=== PATIENT | male | born 1980 | race Caucasian/White ===

== ENCOUNTER 2017-03-13 08:57 | Emergency (ER) | payer SELFPAY ==
[~2017-03-13 08:57] MED LIST: PERC10TA27 PO
[2017-03-13 08:59] VITALS: BP 110/67; PULSE 77; RESP 16; TEMP 98.2; O2SAT 97
[2017-03-13] MEDS ORDERED: SODIUM CHLOR 0.9% 1000 ML INJ 1,000 ML IV SCH ×2 (09:08→10:45)
[2017-03-13 09:15] VITALS: O2SAT 97
[2017-03-13] MEDS ORDERED: MORPHINE SULFATE 4 MG/ML INJ IV PUSH ONE (09:15)
[2017-03-13] MEDS ORDERED: ONDANSETRON HCL 4 MG/2 ML VIAL IVP ONE (09:15)
[2017-03-13] MEDS ORDERED: SODIUM CHLORIDE 0.9% FLUSH 10 ML FLUSH IV FLUSH PRN (09:15)
[2017-03-13] MEDS ORDERED: KETOROLAC TROMETHAMINE 30 MG/ML (IVP) VIAL IVP ONE (09:15)
[2017-03-13 09:29] LABS: AUTOMATED NEUTROPHIL # 6.3 TH/MM3 (1.8-7.7); BASOPHIL # 0.2 TH/MM3 (0-0.2); BASOPHIL % 1.3 % (0.0-2.0); EOSINOPHIL # 0.2 TH/MM3 (0-0.4); EOSINOPHIL % 2.1 % (0.0-4.0); HEMATOCRIT 44.4 % (39.0-51.0); HEMO FLAGS DIFF FINAL; LYMPH % 34.8 % (9.0-44.0); LYMPHOCYTE # 4.1 TH/MM3 (1.0-4.8); MEAN CELL VOLUME 92.1 FL (80.0-100.0); MEAN CORPUSCULAR HEMOGLOBIN 31.2 PG (27.0-34.0); MEAN CORPUSCULAR HGB CONC 33.9 % (32.0-36.0); MONO % 8.8 % (0.0-8.0); PLATELET COUNT 233 TH/MM3 (150-450); RED BLOOD COUNT 4.82 MIL/MM3 (4.50-5.90); RED CELL DISTRIBUTION WIDTH 12.6 % (11.6-17.2); WHITE BLOOD COUNT 11.8 TH/MM3 (4.0-11.0)
--- NOTE | 2017-03-13 09:45 | PD ---
HPI Chief Complaint: Flank/Kidney Pain Time Seen by Provider: 09:06 Travel History International Travel<30 days: No Contact w/Intl Traveler<30days: No Traveled to known affect area: No History of Present Illness HPI So 36-year-old man who presents to the emergency department complaining of left flank pain. Symptoms started about an hour ago. Symptoms are severe. Since getting here he started having nausea and vomiting as well. He's had sweats but no definite fevers. His a history kidney stones and states he gets about one year or so. Symptoms are similar to multiple previous kidney stones. She' s not had needed a procedure intervention for us kidney stones. History Past Medical History Narrative Medical Kidney stones Influenza Vaccination: No Past Surgical History Surgical History: No Previous Surgery Social History Alcohol Use: Yes (12 PACK DAILY) Tobacco Use: Yes (1 PPD) Allergies-Medications (Allergen,Severity, Reaction): Coded Allergies: No Known Allergies (Verified , 03/13/17) Reported Meds & Prescriptions Reported Meds & Active Scripts Active No Active Prescriptions or Reported Medications Review of Systems Except as stated in HPI: all other systems reviewed are Neg Physical Exam Narrative GENERAL: Well-appearing 36-year-old man, obviously uncomfortable, retching. SKIN: A little bit clammy. NECK: Trachea midline. No JVD. CARDIOVASCULAR: Regular rate and rhythm. No murmur appreciated. RESPIRATORY: No accessory muscle use. Clear to auscultation. Breath sounds equal bilaterally. GASTROINTESTINAL: Abdomen soft, non-tender, nondistended. Hepatic and splenic margins not palpable. MUSCULOSKELETAL: No obvious deformities. No edema. NEUROLOGICAL: Awake and alert. No obvious cranial nerve deficits. Motor grossly within normal limits. Normal speech. PSYCHIATRIC: Appropriate mood and affect; insight and judgment normal. Data Data Last Documented VS Vital Signs Date Time Temp Pulse Resp B/P Pulse Ox O2 Delivery O2 Flow Rate FiO2 03/13/17 09:56 84 18 112/70 95 Room Air 03/13/17 08:59 98.2 Orders Complete Blood Count With Diff (03/13/17 09:08) Comprehensive Metabolic Panel (03/13/17 09:08) Urinalysis - C+S If Indicated (03/13/17 09:08) Iv Access Insert/Monitor (03/13/17 09:08) Ecg Monitoring (03/13/17 09:08) Oximetry (03/13/17 09:08) Morphine Inj (Morphine Inj) (03/13/17 09:15) Ondansetron Inj (Zofran Inj) (03/13/17 09:15) Sodium Chlor 0.9% 1000 Ml Inj (Ns 1000 M (03/13/17 09:08) Sodium Chloride 0.9% Flush (Ns Flush) (03/13/17 09:15) Ketorolac Inj (Toradol Inj) (03/13/17 09:15) Hydromorphone Pf Inj (Dilaudid Pf Inj) (03/13/17 10:00) Sodium Chlor 0.9% 1000 Ml Inj (Ns 1000 M (03/13/17 10:45) Acetamin-Hydrocod 325-5 Mg ([place] 5-325 (03/13/17 12:30) Labs Laboratory Tests Test 03/13/17 03/13/17 09:10 12:14 White Blood Count 11.8 TH/MM3 Red Blood Count 4.82 MIL/MM3 Hemoglobin 15.0 GM/DL Hematocrit 44.4 % Mean Corpuscular Volume 92.1 FL Mean Corpuscular Hemoglobin 31.2 PG Mean Corpuscular Hemoglobin 33.9 % Concent Red Cell Distribution Width 12.6 % Platelet Count 233 TH/MM3 Mean Platelet Volume 9.4 FL Neutrophils (%) (Auto) 53.0 % Lymphocytes (%) (Auto) 34.8 % Monocytes (%) (Auto) 8.8 % Eosinophils (%) (Auto) 2.1 % Basophils (%) (Auto) 1.3 % Neutrophils # (Auto) 6.3 TH/MM3 Lymphocytes # (Auto) 4.1 TH/MM3 Monocytes # (Auto) 1.0 TH/MM3 Eosinophils # (Auto) 0.2 TH/MM3 Basophils # (Auto) 0.2 TH/MM3 CBC Comment DIFF FINAL Differential Comment Sodium Level 139 MEQ/L Potassium Level 4.0 MEQ/L Chloride Level 106 MEQ/L Carbon Dioxide Level 26.7 MEQ/L Anion Gap 6 MEQ/L Blood Urea Nitrogen 16 MG/DL Creatinine 1.10 MG/DL Estimat Glomerular Filtration 77 ML/MIN Rate Random Glucose 99 MG/DL Calcium Level 9.1 MG/DL Total Bilirubin 0.6 MG/DL Aspartate Amino Transf 26 U/L (AST/SGOT) Alanine Aminotransferase 40 U/L (ALT/SGPT) Alkaline Phosphatase 64 U/L Total Protein 7.7 GM/DL Albumin 4.0 GM/DL Urine Collection Type CLEAN CATCH Urine Color YELLOW Urine Turbidity SLIGHT Urine pH 5.5 Urine Specific [place] 1.028 Urine Protein TRACE mg/dL Urine Glucose (UA) NEG mg/dL Urine Ketones TRACE mg/dL Urine Occult Blood LARGE Urine Nitrite NEG Urine Bilirubin NEG Urine Leukocyte Esterase NEG Urine RBC 25-49 /hpf Urine Squamous Epithelial 0-5 /hpf Cells Urine Amorphous Sediment MOD Microscopic Urinalysis Comment CULT NOT INDICATED Urine Collection Time 1214 [facility] Medical Decision Making Medical Screen Exam Complete: Yes Emergency Medical Condition: Yes Interpretation(s) CBC remarkable for mild leukocytosis. CMP is unremarkable. UA shows red blood cells. Differential Diagnosis Renal lithiasis, UTI, renal colic, dissection, other intra-abdominal process Narrative Course Medical decision making INITIAL: This a 36 year-old woman who presents emergency department with symptoms strongly suggestive of renal lithiasis. Is a history of previous similar episodes. His never required intervention. He gets about one a year or so. He looks uncomfortable but nontoxic. We'll check labs, urine, IV fluids , supportive treatment with NSAIDs, opiate, Zofran, reassess. FINAL: Patient much improved from initial presentation. Presumed left ureteral lithiasis. Diagnosis Primary Impression: Ureterolithiasis Patient Instructions: General Instructions, Narcotic given in the ED Departure Forms: Tests/Procedures Additional Instructions: Take Naprosyn as needed for [id number] pain. Take Lortab as needed for severe pain. Use caution as this can cause drowsiness. Do not take while driving. Use Zofran as a for nausea and vomiting. Drink plenty of fluids. Follow-up with your primary doctor in the next 2-4 days. Return to the emergency department for any worsening pain, intractable vomiting , fevers or chills, or any other new or worsening symptoms. Scripts Hydrocodone-Acetaminophen (Lortab)5-325 Mg Tab1-2 Tab PO Q6H PRN (PAIN) #12 TAB Prov:Alphonso Hicks MD 03/13/17 Ondansetron Odt (Zofran Odt)4 Mg Tab4 Mg SL Q8HR PRN (Nausea/Vomiting) #15 TAB May substitute non-ODT form. Prov:Alphonso Hicks MD 03/13/17 Naproxen (Naprosyn)500 Mg [id number] Mg PO BID PRN (PAIN SCALE 1 TO 10) #20 TAB Prov:Alphonso Hicks MD 03/13/17 Disposition: 01 DISCHARGE HOME Condition: Stable Alphonso Hicks MD Mar 13, 2017 09:45
[2017-03-13 09:56] VITALS: BP 112/70; PULSE 84; RESP 18; O2SAT 95
[2017-03-13] MEDS ORDERED: HYDROmorphone HCL PF 1 MG/ML VIAL IV PUSH ONE (10:00)
[2017-03-13 10:01] LABS: ANION GAP 6 MEQ/L (5-15); BICARBONATE 26.7 MEQ/L (21.0-32.0); BLOOD UREA NITROGEN 16 MG/DL (7-18); CHLORIDE 106 MEQ/L (98-107); SODIUM (NA) 139 MEQ/L (136-145)
[2017-03-13 10:03] LABS: GLOMERULAR FILTRATION RATE 77 ML/MIN (>89)
[2017-03-13 10:04] LABS: AST (GOT) 26 U/L (15-37)
[2017-03-13 10:07] LABS: ALT (GPT) 40 U/L (12-78)
[2017-03-13 10:09] LABS: TOTAL BILIRUBIN ADULT 0.6 MG/DL (0.2-1.0)
[2017-03-13 10:10] LABS: ALKALINE PHOSPHATASE 64 U/L (45-117)
[2017-03-13 12:17] LABS: BLOOD, URINE LARGE (NEG); GLUCOSE,URINE NEG (NEG); KETONE, URINE TRACE mg/dL (NEG); NITRITE,URINE NEG (NEG); PH, URINE 5.5 (5.0-8.5)
[2017-03-13 12:24] LABS: COMMENT (UR) CULT NOT INDICATED; CULTURE IF INDICATED CULT NOT INDICATED; METHOD OF COLLECTION CLEAN CATCH; SQUAMOUS EPITHELIAL CELL URINE 0-5 /hpf (0-5); URINE COLOR YELLOW (YELLW/STRAW)
[2017-03-13 12:25] LABS: COMMENT2 (UR) MUCOUS PRESENT
[2017-03-13] MEDS ORDERED: NAPR500 PO (12:29)
[2017-03-13] MEDS ORDERED: HYDR-3533 PO (12:29)
[2017-03-13] MEDS ORDERED: ZOFR4TAB3 SL (12:29)
[2017-03-13] MEDS ORDERED: ACETAMINOPHEN/HYDROcodone 325 MG/5 MG TAB PO ONE (12:30)
== END 2017-03-13 12:58 | disposition home or self-care (01) ==
LOC: PHED 08:57
DX: N20.1 Calculus of ureter (principal); R11.2 Nausea with vomiting, unspecified; F17.200 Nicotine dependence, unspecified, uncomplicated; Z87.442 Personal history of urinary calculi
CPT/HCPCS: 80053; 81001; 85025; 96361; 96374; 96375; 99284; J1170; J1885; J2270; J2405; J7030

== ENCOUNTER 2017-08-10 12:54 | Emergency (ER) | payer SELFPAY ==
[~2017-08-10] VITALS: Ht 188 cm; Wt 83.0 kg
[~2017-08-10 12:54] MED LIST changes: +HYDR-3533 PO; +NAPR500 PO; -PERC10TA27 PO; +ZOFR4TAB3 SL
[2017-08-10 12:55] VITALS: BP 100/71; PULSE 93; RESP 18; TEMP 99.4; O2SAT 96
[2017-08-10] MEDS ORDERED: IBUPROFEN 600 MG TAB PO ONE (13:45)
[2017-08-10 13:48] VITALS: BP 123/67; PULSE 82; RESP 18; TEMP 100.7; O2SAT 98
--- NOTE | 2017-08-10 13:56 | PD ---
HPI Chief Complaint: Back/ Neck Pain or Injury Time Seen by Provider: 13:13 Travel History International Travel<30 days: No Contact w/Intl Traveler<30days: No Traveled to known affect area: No History of Present Illness HPI 37-year-old male presents to emergency department complaining of upper and lower back pain yesterday. Patient states that he woke up and had upper back pain and muscle aches. States initially the back pain was located in the upper region but has migrated to the bottom area. Denies fever or chills. Denies history of IV drug use, saddle anesthesia, loss of bowel or bladder function, cancer. States that he does not have a history of back pain. States he also has a runny nose and sore throat since yesterday. Denies fevers or chills. Denies chest pain or shortness of breath. PFSH Past Medical History Diminished Hearing: No Kidney Stones: Yes (2017 x3) Social History Alcohol Use: No (on occasion) Tobacco Use: Yes (1 PPD) Substance Use: No Allergies-Medications (Allergen,Severity, Reaction): Coded Allergies: acetaminophen (Verified Allergy, Unknown, 08/10/17) oxycodone (Verified Allergy, Unknown, 08/10/17) Reported Meds & Prescriptions Reported Meds & Active Scripts Active Amoxicillin 500 Mg Tab 500 Mg PO BID 10 Days Review of Systems Except as stated in HPI: all other systems reviewed are Neg Physical Exam Narrative GENERAL: Well-developed well-nourished in mild distress, laying on his left side SKIN: Focused skin assessment warm/dry. HEAD: Atraumatic. Normocephalic. EYES: Pupils equal and round. No scleral icterus. No injection or drainage. ENT: No nasal bleeding or discharge. Mucous membranes pink and moist. THROAT:mild pharyngeal injection. Patient non compliant with exam of the throat. Airway is patent NECK: Trachea midline. No JVD. Mild anterior cervical lymphadenopathy. No meningismus CARDIOVASCULAR: Regular rate and rhythm. No murmur appreciated. RESPIRATORY: No accessory muscle use. Clear to auscultation. Breath sounds equal bilaterally. GASTROINTESTINAL: Abdomen soft, non-tender, nondistended. MUSCULOSKELETAL: No obvious deformities. No clubbing. No cyanosis. No edema. TTP to entire back and upper extremities NEUROLOGICAL: Awake and alert. No obvious cranial nerve deficits. Motor grossly within normal limits. Normal speech. PSYCHIATRIC: Appropriate mood and affect; insight and judgment normal. Data Data Last Documented VS Vital Signs Date Time Temp Pulse Resp B/P (MAP) Pulse Ox O2 Delivery O2 Flow Rate FiO2 08/10/17 13:48 100.7 82 18 123/67 (85) 98 Room Air Orders Orders Influenzae A/B Antigen (08/10/17 13:31) Group A Rapid Strep Screen (08/10/17 13:31) Ibuprofen (Motrin) (08/10/17 13:45) Strep Culture (Group A) (08/10/17 13:39) Ed Discharge Order (08/10/17 14:45) MDM Medical Decision Making Medical Screen Exam Complete: Yes Emergency Medical Condition: Yes Differential Diagnosis Influenza, strep pharyngitis, viral syndrome Narrative Course 37-year-old male presents to emergency department complaining of upper and lower back pain yesterday. Patient states that he woke up and had upper back pain and muscle aches. States initially the back pain was located in the upper region but has migrated to the bottom area. Denies fever or chills. Denies history of IV drug use, saddle anesthesia, loss of bowel or bladder function, cancer. States that he does not have a history of back pain. States he also has a runny nose and sore throat since yesterday. Denies fevers or chills. Denies chest pain or shortness of breath. Vital signs stable. Physical exam findings consistent with pharyngitis, strep versus viral. Influenza and strep negative. I will treat for strep pharyngitis with amoxicillin. No cough, no fever, sore throat, mild anterior cervical lymphadenopathy. He may also have a viral syndrome contributing to his symptoms. Advised to use Tylenol, Motrin, and salt water gargles for symptomatic relief. He should follow-up with his primary care physician within 2-3 days. Return to the emergency department for worsening or persistent symptoms. Diagnosis Primary Impression: Pharyngitis Qualified Codes: J02.8 - Acute pharyngitis due to other specified organisms Referrals: Primary Care Physician Departure Forms: Tests/Procedures, Work Release Enter return to work date: Aug 13, 2017 Additional Instructions: Use a water gargles for your sore throat. Use Tylenol or Motrin per package instructions. Perform light stretches of the lower back and legs, and alternate heat and ice packs. If you develop increased pain, weakness, fever, chills, or bowel or bladder issues, return to the ED for further treatment and evaluation. Follow up with your primary care physician in 2-3 days. Scripts Amoxicillin (Amoxicillin) 500 Mg Tab 500 MG PO BID for Infection for 10 Days, #20 TAB 0 Refills Prov: Shraddha Jaffe 08/10/17 Disposition: 01 DISCHARGE HOME Condition: Stable Shraddha Jaffe Aug 10, 2017 13:56
[2017-08-10] MEDS ORDERED: AMOX500T PO (14:44)
== END 2017-08-10 15:00 | disposition home or self-care (01) ==
LOC: NEPE 12:54
DX: J02.9 Acute pharyngitis, unspecified (principal); M54.5 Low back pain; M54.9 Dorsalgia, unspecified; R09.89 Other specified symptoms and signs involving the circulatory and respiratory systems; Z87.442 Personal history of urinary calculi; Z88.6 Allergy status to analgesic agent; Z88.5 Allergy status to narcotic agent
CPT/HCPCS: 86403; 87081; 87804; 87880; 99283